=== PATIENT | female | born 1960 ===

== ENCOUNTER → 2017-05-11 | Outpatient (CLI) | payer OTHER ==
--- NOTE | 2017-05-11 08:47 | US ---
EXAMINATION TYPE: US thyroid st tissue head/neck DATE OF EXAM: 05/11/2017 COMPARISON: Previous study dated 05/01/2016. CLINICAL HISTORY: thyroid Nodule, E04.1. GLAND SIZE: Right Lobe: 3.4 x 1.1 x 1.4 cm Overall Parenchyma: heterogenous Left Lobe: 3.3 x 1.1 x 1.1 cm Overall Parenchyma: heterogeneous Isthmus Thickness: 0.3 cm NODULES RIGHT: # of nodules measured on right: 1 1. 0.8 X 0.6 x 0.8 cm echogenic solid nodule at the lower pole with well-defined margins; . This n odule is wider than tall and shows intranodular vascularity. Prior size: 0.7 x 0.5 x 0.7 cm LEFT: # of nodules measured on left: 2 1. 0.9 X 0.5 x 0.5 cm echogenic solid nodule at the upper pole with well-defined margins; . This n odule is wider than tall and shows intranodular vascularity. Prior size: 0.5 x 0.5 x 0.6 cm 2. 0.4 X 0.2 x 0.4 cm hypoechoic solid nodule at the upper pole with well-defined margins; . This n odule is wider than tall and shows intranodular vascularity. Prior size: 0.4 x 0.3 x 0.4 cm ISTHMUS: # of nodules measured in the isthmus: 0 Bilateral neck scanned, no evidence of lymphadenopathy. Nodules as described IMPRESSION: SLIGHT ENLARGEMENT IN ALL OF THE PATIENT'S THYROID NODULES.
== END | disposition home or self-care (01) ==
LOC: RADUSWWP 08:06
PROVIDERS: ATTEND Internal Medicine Endocrinology, Diabetes & Metabolism
DX: E04.2 Nontoxic multinodular goiter (principal)
CPT/HCPCS: 76536

== ENCOUNTER → 2017-09-09 | Outpatient (CLI) | payer OTHER ==
--- NOTE | 2017-09-14 08:35 | MM ---
Reason for exam: screening (asymptomatic). Last mammogram was performed 1 year and 1 month ago. History: Patient is postmenopausal. Family history of breast cancer in paternal aunt and breast cancer in maternal grandmother. Physical Findings: A clinical breast exam by your physician is recommended on an annual basis and results should be correlated with mammographic findings. MG Screening Mammo w CAD Bilateral CC and MLO view(s) were taken. Prior study comparison: August 01, 2016, bilateral MG screening mammo w CAD. May 31, 2015, bilateral MG screening mammo w CAD. April 07, 2014, bilateral MG screening mammo w CAD. The breast tissue is heterogeneously dense. This may lower the sensitivity of mammography. There is chronic nodularity in the right breast. No significant changes when compared with prior studies. ASSESSMENT: Negative, BI-RAD 1 RECOMMENDATION: Routine screening mammogram of both breasts in 1 year.
== END | disposition home or self-care (01) ==
LOC: RADMAMWWP 13:13
PROVIDERS: ATTEND Obstetrics & Gynecology
DX: Z12.31 Encounter for screening mammogram for malignant neoplasm of breast (principal); Z80.3 Family history of malignant neoplasm of breast

== ENCOUNTER → 2018-05-19 | Outpatient (CLI) | payer OTHER ==
--- NOTE | 2018-05-20 07:40 | US ---
EXAMINATION TYPE: US thyroid st tissue head/neck DATE OF EXAM: 05/19/2018 COMPARISON: US 05/11/2017 CLINICAL HISTORY: E04.1 SINGLE THYROID NODULE. F/U previous GLAND SIZE: Right Lobe: 3.7 x 1.3 x 1.6 cm Overall Parenchyma: heterogenous Left Lobe: 3.4 x 1.1 x 1.1 cm Overall Parenchyma: heterogeneous Isthmus Thickness: 0.3 cm NODULES RIGHT: # of nodules measured on right: 1 1. 0.7 X 0.5 x 0.8 cm echogenic solid nodule at the lower pole with well-defined margins; This nod ule is wider than tall and shows intranodular vascularity. This is hyperechoic. Prior size: 0.8 x 0.6 x 0.8 cm LEFT: # of nodules measured on left: 1 1. 0.9 X 0.5 x 0.7 cm echogenic solid nodule at the upper pole with well-defined margins; This nod ule is wider than tall and shows intranodular vascularity. This is isoechoic. Prior size: 0.9 x 0.5 x 0.5 cm Bilateral neck scanned, no evidence of lymphadenopathy. Stable nodules bilaterally. IMPRESSION: 1. Stable subcentimeter thyroid nodules.
== END | disposition home or self-care (01) ==
LOC: RADUSWWP 16:00
PROVIDERS: ATTEND Internal Medicine Endocrinology, Diabetes & Metabolism
DX: E04.2 Nontoxic multinodular goiter (principal)
CPT/HCPCS: 76536

== ENCOUNTER 2018-06-18 08:44 | Day surgery (SDC) | payer OTHER ==
[2018-06-15 10:55] VITALS: BMI 28.3
[~2018-06-18 08:44] MED LIST: LACTATED RINGERS 1,000 ML IV SCH
[2018-06-18] MEDS ORDERED: LIDOCAINE 1% 20 ML VIAL (10MG/ML) FOR IV START INTRADERMA ONE (09:01)
[2018-06-18 09:02] VITALS: TEMP 98
[2018-06-18] MEDS ORDERED: PROPOFOL 10 MG/ML 20 ML VIAL IV ONE (09:40)
--- NOTE | 2018-06-18 10:06 | P.PCN ---
Date of Procedure: 06/18/18 Procedure(s) Performed: BRIEF HISTORY: Patient is a 58-year-old pleasant white female scheduled for an elective colonoscopy as a part of screening for colon rectal neoplasia. She has family history of colon cancer diagnosed in HER-2 maternal uncles. PROCEDURE PERFORMED: Colonoscopy snare polypectomy. PREOPERATIVE DIAGNOSIS: Screening for colon cancer/family history of colon cancer. IV sedation per Anesthesia. PROCEDURE: After informed consent was obtained, the patient, was brought into the endoscopy unit. IV sedation was administered by Anesthesia under continuous monitoring. Digital rectal examination was normal. Initially the Olympus CF- 160 flexible video colonoscope was then inserted in the rectum, gradually advanced into the cecum without any difficulty. Careful examination was performed as the scope was gradually being withdrawn. Ileocecal valve and the appendiceal orifice were visualized and appeared normal. Prep was excellent. Mucosa of the cecum, ascending colon, transverse colon, appeared normal. In the descending colon there was a 5-6 mm sessile polyp removed by snare polypectomy. Rest of the descending colon, sigmoid colon, and rectum appeared normal. Scattered sigmoid diverticulosis seen. Retroflexion was performed in the rectum and no lesions were seen. The patient tolerated the procedure well. IMPRESSION: 5-6 mm sessile descending colon polyp status post polypectomy Scattered sigmoid diverticulosis RECOMMENDATIONS: Findings of this examination were discussed with the patient as well as her family. She was advised to follow with the biopsy results. If the biopsy shows a tubular adenoma, she can have a repeat colonoscopy in 5 years.
[2018-06-18 10:09] VITALS: PULSE 52; RESP 18
[2018-06-18 10:31] VITALS: BP 138/90
== END 2018-06-18 10:54 | disposition home or self-care (01) ==
LOC: ORWHC2ENDO 08:44
PROVIDERS: ATTEND Internal Medicine Gastroenterology
DX: Z12.11 Encounter for screening for malignant neoplasm of colon (principal); D12.8 Benign neoplasm of rectum; K57.30 Diverticulosis of large intestine without perforation or abscess without bleeding; Z80.0 Family history of malignant neoplasm of digestive organs; E78.5 Hyperlipidemia, unspecified; E07.9 Disorder of thyroid, unspecified; Z79.890 Hormone replacement therapy; Z79.899 Other long term (current) drug therapy
CPT/HCPCS: 88305; 45385; J2704

== ENCOUNTER → 2018-09-30 | Outpatient (CLI) | payer OTHER ==
--- NOTE | 2018-09-30 14:14 | BD ---
EXAMINATION TYPE: Axial Bone Density DATE OF EXAM: 09/30/2018 COMPARISON: NONE CLINICAL HISTORY: Height: 61 Weight: 138.4 FRAX RISK QUESTIONS: Alcohol (3 or more units per day): no Family History (Parent hip fracture): no Glucocorticoids (More than 3mos): no (Ex: prednisone, prednisolone, methylprednisolone, dexamethasone, and hydrocortisone). History of Fracture in Adulthood: yes Secondary Osteoporosis: 1. Type 1 Diabetes: no 2. Hyperthyroidism: yes 3. Menopause before 45: no 4. Malnutrition: no 5. Chronic liver disease: no Rheumatoid Arthritis: no Current Tobacco Use: no RISK FACTORS HISTORY OF: Family History of Osteoporosis: yes mother Active: yes Diet low in dairy products/other sources of calcium: yes Postmenopausal woman: age 48 Lost more than 2 inches in height since high school: no Frequent falls: no MEDICATIONS: simvastatin Thyroid Medications: levothyroxine How Long: yes Additional History: EXAM MEASUREMENTS: Bone mineral densitometry was performed using the [employer] System. Bone mineral density as measured about the Lumbar spine is: ----- L1-L4(G/cm2): 1.270 T Score Values are as follows: ----- L2: 0.0 ----- L3: 0.8 ----- L4: 1.3 ----- L1-L4: 0.8 Bone mineral density : baseline Bone mineral density about the R hip (g/cm2): 0.884 Bone mineral density about the L hip (g/cm2): 0.842 T Score values are as follows: -----R Neck: -1.1 -----L Neck: -1.4 -----R Total: -0.1 -----L Total: -0.1 Bone mineral density : baseline IMPRESSION: Osteopenia (T Score between -2.5 and -1) overall femoral neck level bilateral hips. There is slightly increased risk of fracture and the patient may be considered for treatment. Re-Screen 2-5 years. NOTE: T-SCORE=SD OF THE YOUNG ADULT MEAN.
== END | disposition home or self-care (01) ==
LOC: RADBDWWP 07:03
PROVIDERS: ATTEND Obstetrics & Gynecology
DX: M85.851 Other specified disorders of bone density and structure, right thigh (principal); M85.852 Other specified disorders of bone density and structure, left thigh; Z78.0 Asymptomatic menopausal state
CPT/HCPCS: 77080

== ENCOUNTER → 2019-09-23 | Outpatient (CLI) | payer OTHER ==
--- NOTE | 2019-09-27 07:54 | MM ---
Reason for exam: screening (asymptomatic). Last mammogram was performed 1 year ago. History: Patient is postmenopausal and history of other cancer. Family history of breast cancer in paternal aunt, breast cancer in maternal grandmother, and breast cancer in paternal grandmother. Physical Findings: A clinical breast exam by your physician is recommended on an annual basis and results should be correlated with mammographic findings. MG Screening Mammo w CAD Bilateral CC and MLO view(s) were taken. Prior study comparison: September 16, 2018, bilateral MG screening mammo w CAD. September 09, 2017, bilateral MG screening mammo w CAD. The breast tissue is heterogeneously dense. This may lower the sensitivity of mammography. There is chronic nodularity in the right breast. No significant changes when compared with prior studies. ASSESSMENT: Benign, BI-RAD 2 RECOMMENDATION: Routine screening mammogram of both breasts in 1 year.
== END ==
LOC: RADMAMWWP 15:57
PROVIDERS: ATTEND Obstetrics & Gynecology
DX: Z12.31 Encounter for screening mammogram for malignant neoplasm of breast (principal); Z80.3 Family history of malignant neoplasm of breast
CPT/HCPCS: 77067

== ENCOUNTER → 2019-11-02 | Outpatient (CLI) | payer OTHER ==
--- NOTE | 2019-11-02 16:10 | US ---
EXAMINATION TYPE: US carotid duplex BILAT DATE OF EXAM: 11/02/2019 COMPARISON: NONE CLINICAL HISTORY: R09.89 other specified symptoms and signs involvin. High blood pressure. EXAM MEASUREMENTS: RIGHT: Peak Systolic Velocity (PSV) cm/sec ----- Right CCA: 69.2 ----- Right ICA: 118.6 ----- Right ECA: 93.9 ICA/CCA ratio: 1.7 RIGHT: End Diastole cm/sec ----- Right CCA: 18.3 ----- Right ICA: 54.6 ----- Right ECA: 16.9 LEFT: Peak Systolic Velocity (PSV) cm/sec ----- Left CCA: 70.6 ----- Left ICA: 118.6 ----- Left ECA: 88.1 ICA/CCA ratio: 1.7 LEFT: End Diastole cm/sec ----- Left CCA: 24.1 ----- Left ICA: 45.9 ----- Left ECA: 15.4 VERTEBRALS (direction of flow): Right Vertebral: Antegrade Left Vertebral: Antegrade Rhythm: Normal IMPRESSION: 1. Mild atheromatous plaquing without significant flow-limiting stenosis. Some mild intimal thickenin g may be present on the left. Turbulent flow is present bilaterally Criteria for Assigning % of Stenosis / Diameter reduction (Estimation based on the indirect measurements of the internal carotid artery velocities (ICA PSV). 1. Normal (no stenosis)=ICA PSV < 125 cm/s: ratio < 2.0: ICA EDV<40 cm/s. 2. Less than 50% stenosis=ICA PSV < 125 cm/s: ratio < 2.0: ICA EDV<40 cm/s. 3. 50 to 69% stenosis=ICA PSV of 125 to 230 cm/s: ration 2.0 ? 4.0: ICA EDV 40-100 cm/s. 4. Greater than 70% stenosis to near occlusion= ICA PSV > 230 cm/s: ratio > 4.0: ICA EDV > 100 cm/s. 5. Near occlusion= ICA PSV velocities may be low or undetectable: variable ratio and ICA EDV. 6. Total occlusion=unable to detect flow.
--- NOTE | 2019-11-09 10:22 | P.ARTDOP ---
Arterial Doppler Upper extremity arterial Doppler: Reason for study: Irregular blood pressures Date of study: 11/02/2019 Findings: There are no significant right to left or segmental pressure gradients. Doppler waveforms are multiphasic throughout. Impression: Normal upper extremity arterial Doppler
== END | disposition home or self-care (01) ==
LOC: RADUSWWP 13:43
PROVIDERS: ATTEND Family Medicine
DX: I65.23 Occlusion and stenosis of bilateral carotid arteries (principal); R09.89 Other specified symptoms and signs involving the circulatory and respiratory systems
CPT/HCPCS: 93880; 93923

== ENCOUNTER → 2020-05-11 | Outpatient (CLI) | payer OTHER | END | disposition home or self-care (01) | LOC: LABWHC1 13:32 | PROVIDERS: ATTEND Internal Medicine Endocrinology, Diabetes & Metabolism | DX: E03.9 Hypothyroidism, unspecified (principal) | CPT/HCPCS: 36415; 84443 ==

== ENCOUNTER → 2020-05-11 | Outpatient (CLI) | payer OTHER ==
--- NOTE | 2020-05-11 15:07 | US ---
EXAMINATION TYPE: US thyroid st tissue head/neck DATE OF EXAM: 05/11/2020 COMPARISON: 05/19/2018 CLINICAL HISTORY: 60-year-old female E04.1 SINGLE THYROID NODULE. TECHNIQUE: Multiple sonographic images of the thyroid gland are obtained. FINDINGS: GLAND SIZE: Right Lobe: 3.4 x 1.1 x 1.2 cm Overall Parenchyma: heterogenous Left Lobe: 3.3 x 0.9 x 1.1 cm Overall Parenchyma: heterogeneous Isthmus Thickness: 0.4 cm NODULES RIGHT: # of nodules measured on right: 1 1. 0.5 X 0.4 x 0.6 cm echogenic solid nodule at the mid pole with slightly indistinct margins. Thi s nodule is wider than tall and shows intranodular vascularity. Prior size: Not previously visualized LEFT: # of nodules measured on left: 1 1. 1.0 X 0.7 x 0.7 cm echogenic solid nodule at the mid pole with slightly indistinct margins. This nodule is wider than tall and shows intranodular vascularity. Prior size: 0.9 x 0.5 x 0.7 cm ISTHMUS: # of nodules measured in the isthmus: 1 previously measured as a right thyroid nodule 1. 1.0 X 0.6 x 1.1 cm echogenic solid nodule at the mid pole with well-defined margins; . This nod ule is wider than tall and shows intranodular vascularity. Prior size: 0.7 x 0.5 x 0.8 cm Bilateral neck scanned, no evidence of lymphadenopathy. IMPRESSION: 1. A solid isthmic nodule slightly larger at 11 x 10 mm versus 8 x 7 mm, previously. 2. 6 mm solid right midpole nodule not identified previously. Follow-up can be performed. 3. Solid left lobe nodule relatively unchanged at 10 mm.
== END ==
LOC: RADUSWWP 14:24
PROVIDERS: ATTEND Internal Medicine Endocrinology, Diabetes & Metabolism
DX: R22.0 Localized swelling, mass and lump, head (principal)
CPT/HCPCS: 76536

== ENCOUNTER → 2020-10-10 | Outpatient (CLI) | payer OTHER ==
--- NOTE | 2020-10-10 12:19 | BD ---
EXAMINATION TYPE: Axial Bone Density DATE OF EXAM: 10/10/2020 COMPARISON: NONE CLINICAL HISTORY: Height: 5 FT 1 IN Weight: 143 FRAX RISK QUESTIONS: Alcohol (3 or more units per day): NO Family History (Parent hip fracture): NO Glucocorticoids (More than 3mos): NO (Ex: prednisone, prednisolone, methylprednisolone, dexamethasone, and hydrocortisone). History of Fracture in Adulthood: YES Secondary Osteoporosis: 1. Type 1 Diabetes: NO 2. Hyperthyroidism: NO 3. Menopause before 45: NO 4. Malnutrition: NO 5. Chronic liver disease: NO Rheumatoid Arthritis: NO Current Tobacco Use: NO RISK FACTORS HISTORY OF: Family History of Osteoporosis: YES Active: YES Diet low in dairy products/other sources of calcium: NO Postmenopausal woman: AGE 48 Take estrogen and/or progesterone medications: NONE Lost more than 2 inches in height since high school: NONE MEDICATIONS: Thyroid Medications: YES Which medication: LEVOTHYROXINE How Long: APPROX 20 YEARS Additional Medications: LEVOTHYROXINE, SIMVASTATIN Additional History: EXAM MEASUREMENTS: Bone mineral densitometry was performed using the [employer] System. Bone mineral density as measured about the Lumbar spine is: ----- L1-L4(G/cm2): 1.251 T Score Values are as follows: ----- L2: -0.1 ----- L3: 0.4 ----- L4: 1.1 ----- L1-L4: 0.6 Bone mineral density has: DECREASED -2.0 % since study of: 2017 Bone mineral density about the R hip (g/cm2): 0.833 Bone mineral density about the L hip (g/cm2): 0.797 T Score values are as follows: -----R Neck: -1.5 -----L Neck: -1.7 -----R Total: -0.5 -----L Total: -0.6 Bone mineral density has: DECREASED -5.4 % since study of: 2018 IMPRESSION: No evidence for osteoporosis or osteopenia. NOTE: T-SCORE=SD OF THE YOUNG ADULT MEAN.
== END | disposition home or self-care (01) ==
LOC: RADBDWWP 07:03
PROVIDERS: ATTEND Obstetrics & Gynecology
DX: M81.0 Age-related osteoporosis without current pathological fracture (principal); Z80.3 Family history of malignant neoplasm of breast
CPT/HCPCS: 77080

== ENCOUNTER → 2021-06-03 | Outpatient (CLI) | payer OTHER | END | disposition home or self-care (01) | LOC: LABWHC1 07:13 | PROVIDERS: ATTEND Internal Medicine Endocrinology, Diabetes & Metabolism | DX: E03.9 Hypothyroidism, unspecified (principal) | CPT/HCPCS: 36415; 84443 ==

== ENCOUNTER → 2021-06-04 | Outpatient (CLI) | payer OTHER ==
--- NOTE | 2021-06-05 08:36 | US ---
EXAMINATION TYPE: US thyroid st tissue head/neck DATE OF EXAM: 06/04/2021 COMPARISON: 05/11/2020 CLINICAL HISTORY: E04.1 Nontoxic single thyroid nodule. follow up thyroid nodules GLAND SIZE: Right Lobe: 3.4 x 1.3 x 1.6 cm Overall Parenchyma: heterogenous Left Lobe: 3.9 x 1.3 x 1.0 cm Overall Parenchyma: heterogeneous Isthmus Thickness: 0.3 cm NODULES RIGHT: # of nodules measured on right: 1 1. 0.5 X 0.4 x 0.5 cm, mid , solid, hyperechoic nodule, which is wider than tall, with ill-defined margins, without echogenic foci. Prior size: 0.5 x 0.4 x 0.6 cm LEFT: # of nodules measured on left: 1 1. 1.2 X 0.8 x 0.8 cm, mid , solid, hyperechoic nodule, which is wider than tall, with ill-defined margins, without echogenic foci. Prior size: 1.0 x 0.7 x 0.7 cm ISTHMUS: # of nodules measured in the isthmus: 1 1. 1.1 X 0.8 x 1.1 cm solid, hyperechoic nodule, which is wider than tall, with smooth margins, wit hout echogenic foci. Prior size: 1.0 x 0.6 x 1.1 cm Bilateral neck scanned, no evidence of lymphadenopathy. IMPRESSION: Several nonspecific nodularity. 2017 ACR TI-RADS LEVEL: *Highest TI-RADS level nodule reported
== END | disposition home or self-care (01) ==
LOC: RADUSWWP 16:40
PROVIDERS: ATTEND Internal Medicine Endocrinology, Diabetes & Metabolism
DX: E04.2 Nontoxic multinodular goiter (principal)
CPT/HCPCS: 76536

== ENCOUNTER 2021-06-12 12:36 | Day surgery (SDC) | payer OTHER ==
[2021-06-12 13:11] VITALS: TEMP 98.4
[2021-06-12 14:54] VITALS: BP 146/71; PULSE 72; RESP 16
--- NOTE | 2021-06-12 15:42 | US ---
EXAMINATION TYPE: US FNA thyroid first lesion DATE OF EXAM: 06/12/2021 COMPARISON: NONE HISTORY: Thyroid nodule. Maximal barrier technique was utilized. After informed consent, skin overlying the lesion was locali zed with ultrasound and the overlying skin prepped and draped. Ultrasound was utilized using sterile technique. Lidocaine was used for local anesthesia. Five passes with a 25-gauge needle were made int o the left lobe thyroid nodule and aspirated specimen was submitted to cytology. Following the proce dure hemostasis achieved. No immediate complication. The patient discharged in stable condition. IMPRESSION: STATUS POST ULTRASOUND GUIDED FINE NEEDLE ASPIRATION OF THYROID NODULE, PATHOLOGY IS PEND ING. THIS PROCEDURE WAS PERFORMED BY THE UNDERSIGNED.
== END 2021-06-12 14:30 | disposition home or self-care (01) ==
LOC: RADPROMAIN 12:36
PROVIDERS: ATTEND Internal Medicine Endocrinology, Diabetes & Metabolism
DX: E04.1 Nontoxic single thyroid nodule (principal)
CPT/HCPCS: 10005; 88173; 88305

== ENCOUNTER → 2021-11-25 | Outpatient (CLI) | payer OTHER ==
--- NOTE | 2021-11-26 11:31 | MM ---
Reason for exam: screening (asymptomatic). Last mammogram was performed 1 year and 1 month ago. History: Patient is postmenopausal and history of other cancer. Family history of breast cancer in paternal aunt at age 70, breast cancer in maternal grandmother, and breast cancer in paternal grandmother. Physical Findings: A clinical breast exam by your physician is recommended on an annual basis and results should be correlated with mammographic findings. MG Screening Mammo w CAD Bilateral CC and MLO view(s) were taken. Prior study comparison: October 31, 2020, bilateral MG 3d screening mammo w/cad. September 23, 2019, bilateral MG screening mammo w CAD. The breast tissue is heterogeneously dense. This may lower the sensitivity of mammography. No significant changes when compared with prior studies. ASSESSMENT: Benign, BI-RAD 2 RECOMMENDATION: Routine screening mammogram of both breasts in 1 year.
== END | disposition home or self-care (01) ==
LOC: RADMAMWWP 15:35
PROVIDERS: ATTEND Obstetrics & Gynecology
DX: Z12.31 Encounter for screening mammogram for malignant neoplasm of breast (principal); Z80.3 Family history of malignant neoplasm of breast; Z78.0 Asymptomatic menopausal state
CPT/HCPCS: 77067

== ENCOUNTER → 2022-05-20 | Outpatient (CLI) | payer OTHER ==
--- NOTE | 2022-05-20 10:14 | US ---
EXAMINATION TYPE: US thyroid st tissue head/neck DATE OF EXAM: 05/20/2022 COMPARISON: US dated 06/04/2021 CLINICAL HISTORY: E04.1 Nontoxic single thyroid nodule. GLAND SIZE: Right Lobe: 3.7 x 1.3 x 1.6 cm Overall Parenchyma: homogenous Left Lobe: 3.6 x 1.4 x 0.9 cm Overall Parenchyma: homogeneous Isthmus Thickness: 0.3 cm NODULES RIGHT: # of nodules measured on right: 2 1. 0.5 X 0.3 x 0.4 cm, mid mid, solid or almost completely solid, hyperechoic nodule, which is wide r than tall, with smooth margins, without echogenic foci. Prior size: 0.5 x 0.4 x 0.5 cm 2. 0.5 X 0.4 x 0.6 cm, upper mid, solid or almost completely solid, hyperechoic nodule, which is wi juana than tall, with smooth margins, without echogenic foci. Prior size: not previously measures LEFT: # of nodules measured on left: 1 1. 0.9 X 0.6 x 0.7 cm, upper mid, solid or almost completely solid, hyperechoic nodule, which is wi juana than tall, with smooth margins, without echogenic foci. Prior size: 1.2 x 0.8 x 0.8 cm ISTHMUS: # of nodules measured in the isthmus: 1 1. 1.0 X 0.7 x 1.2 cm solid or almost completely solid, hyperechoic nodule, which is wider than jorge l, with smooth margins, without echogenic foci. TR4 Prior size: 1.1 x 0.8 x 1.1 cm Bilateral neck scanned, no evidence of lymphadenopathy. IMPRESSION: 1. Moderately suspicious nodule in isthmus of the thyroid follow-up in 1 year is recommended. 2017 ACR TI-RADS LEVEL: TR-RADS 4 - Moderately Suspicious: Follow if > 1 cm, FNA if > 1.5 cm *Highest TI-RADS level nodule reported
== END | disposition home or self-care (01) ==
LOC: RADUSWWP 06:47
PROVIDERS: ATTEND Internal Medicine Endocrinology, Diabetes & Metabolism
DX: E04.1 Nontoxic single thyroid nodule (principal)
CPT/HCPCS: 76536; 84443

== ENCOUNTER 2023-09-23 10:38 | Day surgery (SDC) | payer OTHER ==
[~2023-09-23 10:38] MED LIST changes: +LIDOCAINE 1% (10MG/ML) FOR IV START INTRADERMA PRN
[2023-09-23 11:06] VITALS: TEMP 98
[2023-09-23] MEDS ORDERED: PROPOFOL 10 MG/ML 20 ML VIAL IV ONE (12:27)
--- NOTE | 2023-09-23 12:48 | P.PCN ---
Date of Procedure: 09/23/23 Procedure(s) Performed: BRIEF HISTORY: Patient is a 63-year-old pleasant white female scheduled for an elective colonoscopy as a part of the lesion of prior history of colon polyps. Last colonoscopy was 5 years ago. PROCEDURE PERFORMED: Colonoscopy snare polypectomy. PREOPERATIVE DIAGNOSIS: History of colon polyps. IV sedation per Anesthesia. PROCEDURE: After informed consent was obtained, the patient, was brought into the endoscopy unit. IV sedation was administered by Anesthesia under continuous monitoring. Digital rectal examination was normal. Initially the Olympus CF-160 flexible video colonoscope was then inserted in the rectum, gradually advanced into the cecum without any difficulty. Careful examination was performed as the scope was gradually being withdrawn. Ileocecal valve and the appendiceal orifice were visualized and appeared normal. Prep was excellent. Mucosa of the cecum, normal. In the ascending colon there was a 1 segment of flat polyp removed by snare polypectomy. Rest of the ascending colon, transverse colon, descending colon, appeared normal. In the sigmoid: There was a 5 mm polyp removed by snare polypectomy.. In the rectosigmoid colon there was a 1 cm polyp removed by snare polypectomy. Scattered sigmoid diverticulosis seen. Rest of the sigmoid colon, and rectum appeared normal. Retroflexion was performed in the rectum and no lesions were seen. The patient tolerated the procedure well. IMPRESSION: 1 cm flat ascending colon polyp status post polypectomy 5 mm sigmoid polyp status post polypectomy 1 cm rectosigmoid polyp status post polypectomy Scattered sigmoid diverticulosis. RECOMMENDATIONS: Findings of this examination were discussed with the patient as well as a family. She was advised to follow with the biopsy results. If the biopsy results adenoma she can have a repeat colonoscopy in 3 years..
[2023-09-23 13:28] VITALS: BP 114/71; PULSE 68; RESP 14
== END 2023-09-23 13:36 | disposition home or self-care (01) ==
LOC: ORWHC2ENDO 10:38
PROVIDERS: ATTEND Internal Medicine Gastroenterology
DX: Z12.11 Encounter for screening for malignant neoplasm of colon (principal); D12.7 Benign neoplasm of rectosigmoid junction; K57.30 Diverticulosis of large intestine without perforation or abscess without bleeding; Z86.010 Personal history of colon polyps; I10 Essential (primary) hypertension; E78.5 Hyperlipidemia, unspecified; E03.9 Hypothyroidism, unspecified; Z79.890 Hormone replacement therapy; Z90.89 Acquired absence of other organs; Z98.890 Other specified postprocedural states; Z79.899 Other long term (current) drug therapy
CPT/HCPCS: 88305; 45385; J2704

== ENCOUNTER → 2023-11-27 | Outpatient (CLI) | payer MEDICARE ==
--- NOTE | 2023-11-27 09:47 | BD ---
EXAMINATION TYPE: Axial Bone Density DATE OF EXAM: 11/27/2023 CLINICAL HISTORY: 63 years old Female. ICD-10 CODE: Z13.820 Screening for osteoporosis Height: 59.5 Weight: 150 FRAX RISK QUESTIONS: Family History (Parent hip fracture): yes History of Fracture in Adulthood: yes 3. Menopause before 45: no, 48 yrs old RISK FACTORS HISTORY OF: hx of rt foot and ankle fractures as an adult MEDICATIONS: statin for cholesterol, multivitamin with vit d and calcium Thyroid Medications: yes, synthroid for over 22 yrs EXAM MEASUREMENTS: Bone mineral densitometry was performed using the [employer]. Bone mineral density as measured about the Lumbar spine is: ----- L1-L4(G/cm2): 1.178 T Score Values are as follows: ----- L1: 0.3 ----- L2: -1.4 ----- L3: 0.3 ----- L4: 0.4 ----- L1-L4: 0.0 Z Score Values are as follows: ----- L1: 1.8 ----- L2: 0.1 ----- L3: 1.8 ----- L4: 1.9 ----- L1-L4: 1.5 Bone mineral density has: Decreased -5.8% since study of: 10.10.2020 Bone mineral density about the R hip (g/cm2): 0.902 Bone mineral density about the L hip (g/cm2): 0.971 T Score values are as follows: -----R Neck: -1.8 -----L Neck: -1.9 -----R Total: -0.8 -----L Total: -0.3 Z Score values are as follows: -----R Neck: -0.3 -----L Neck: -0.5 -----R Total: 0.3 -----L Total: 0.9 Bone mineral density has: Decreased -0.4% since study of: 10.10.2020 FRAX%s: The graph provided illustrates a 29.8% chance for a major osteoporotic fx and a 2.9% chance f or the hips probability for fx in 10 years time. IMPRESSION: Normal (Values between +1 and -1 indicate normal bone mass). Consider repeating this study in 5 year s or sooner if there is some new clinical indication. NOTE: T-SCORE=SD OF THE YOUNG ADULT MEAN.
--- NOTE | 2023-11-30 19:28 | MM ---
Reason for Exam: Screening (asymptomatic). Last screening mammogram was performed 12 month(s) ago. Patient History: Menarche at age 11. First Full-Term at age 26. Hysterectomy at age 50. Postmenopausal. Other cancer. Paternal grandmother had breast cancer. Maternal grandmother had breast cancer. Paternal aunt had breast cancer, age 70. Risk Values: Nithya 5 year model risk: 1.8%. NCI Lifetime model risk: 6.9%. Prior Study Comparison: 10/31/2020 Bilateral Screening Mammogram, [facility]. 11/25/2021 Bilateral Screening Mammogram, [facility]. 11/26/2022 Bilateral MG 3D screening mammo w/cad, [facility]. Tissue Density: The breast tissue is heterogeneously dense. This may lower the sensitivity of mammography. Findings: Analyzed By CAD. There is no suspicious group of microcalcifications or new suspicious mass in either breast. Overall Assessment: Negative, BI-RAD 1 Management: Screening Mammogram of both breasts in 1 year. . Patient should continue monthly self-breast exams. A clinical breast exam by your physician is recommended on an annual basis. This exam should not preclude additional follow-up of suspicious palpable abnormalities. Note on Nithya scores and lifetime risk: 1. A Nithya score greater than 3% is considered moderate risk. If this is the case, consider specialist referral to assess eligibility for a risk reducing agent. 2. If overall lifetime risk for the development of breast cancer is 20% or higher, the patient may qualify for future screening with alternating mammogram and breast MRI. Electronically signed and approved by: Brie Tran M.D. Radiologist
== END | disposition home or self-care (01) ==
LOC: RADMAMWWP 06:51
PROVIDERS: ATTEND Family Medicine
DX: Z12.31 Encounter for screening mammogram for malignant neoplasm of breast (principal); Z13.820 Encounter for screening for osteoporosis; M85.89 Other specified disorders of bone density and structure, multiple sites; N95.1 Menopausal and female climacteric states; Z80.3 Family history of malignant neoplasm of breast
CPT/HCPCS: 77063; 77067; 77080

== ENCOUNTER → 2024-04-22 | Outpatient (CLI) | payer MEDICARE ==
--- NOTE | 2024-04-22 16:59 | MR ---
EXAMINATION TYPE: MR neck wo/w con DATE OF EXAM: 04/22/2024 4:39 PM CLINICAL INDICATION:Female, 64 years old with history of R22.1 PARAPHARYNGEAL SPACE MASS; [facility], 1 year follow up, parapharyngeal space mass COMPARISON: 01/25/2022. TECHNIQUE: Multi planar, multi sequence imaging was performed of the neck soft tissues. MR contrast: IV Contrast: 7 cc Gadavist FINDINGS: Decrease in right parapharyngeal space mass seen on prior no masses definitively visualized on today's exam. Nonenlarged lymph nodes are seen bilaterally. The mucosa appears relatively symmetr ic no abnormal thickening. The glottis appears unremarkable. Postcontrast imaging demonstrates no ab normal postcontrast enhancement The cervical vertebral bodies have preserved heights and alignment. Multilevel disc desiccation and anterior osteophytosis are present. The cervical spinal cord demonstrates a normal appearance. IMPRESSION: 1. Resolution of prior right parapharyngeal mass. No greater than 1.0 cm in short axis lymph nodes id entified. 2. Multilevel degenerative disc disease with associated osteoarthritic changes.
== END | disposition home or self-care (01) ==
LOC: RADMRIMAIN 04-19 13:26
PROVIDERS: ATTEND Student in an Organized Health Care Education/Training Program
DX: R22.1 Localized swelling, mass and lump, neck (principal); M50.30 Other cervical disc degeneration, unspecified cervical region; M19.90 Unspecified osteoarthritis, unspecified site
CPT/HCPCS: 70543; A9585